=== PATIENT | male | born 1970 | race Caucasian/White ===

== ENCOUNTER 2016-08-24 03:37 | Emergency (ER) | payer OTHER ==
[2016-08-24] MEDS ORDERED: MECLIZINE HCL 12.5 MG TABLET PO ONE (04:21)
[2016-08-24] MEDS ORDERED: LORazepam 2 MG/ML INJ ONE (04:36)
[2016-08-24 04:38] LABS: HEMATOCRIT 47.7 % (42.0-54.0); RED BLOOD COUNT 5.44 X 10^6uL (4.20-6.10); WHITE BLOOD COUNT 12.2 X 10^3uL (3.9-10.7)
[2016-08-24 04:39] LABS: EOSINOPHILS 3.1 % (0.0-6.0); LYMPHOCYTES 30.7 % (20.0-40.0); MEAN CORPUS. HGB CONCENTRATION 33.5 g/dL (32.0-36.0); MEAN CORPUSCULAR HEMOGLOBIN 29.4 pg (29.0-35.0); MEAN PLATELET VOLUME 7.8 fL (7.4-10.4); MONOCYTES 7.3 % (2.0-10.0); NEUTROPHILS 57.8 % (54.0-75.0); PLATELET COUNT 275 X 10^3uL (130-440); RED CELL DISTRIBUTION WIDTH 12.9 % (11.5-14.5)
[2016-08-24 04:40] LABS: BASOPHIL# 0.1 X 10^3uL (0.0-0.1); EOSINOPHILS# 0.4 X 10^3uL (0.0-0.4); LYMPHOCYTES# 3.8 X 10^3uL (0.8-3.8); MONOCYTES# 0.9 X 10^3uL (0.2-1.0); NEUTROPHILS# 7.1 X 10^3uL (2.6-6.7)
--- NOTE | 2016-08-24 04:49 | CT REPORT ---
HISTORY: Dizziness COMPARISON: None. TECHNIQUE: Axial non-contrast images obtained from skull vertex through foramen magnum. Dose reduction technique was utilized. FINDINGS: Sensitivity is slightly limited by motion artifact. Within this limitation: There is no atrophy. There is no hemorrhage. There is no hydrocephalus. No mass lesion is identifi ed. Gr white differentiation adequate, there is no infarction. No midline shift is identified. T he paranasal sinuses are clear. IMPRESSION: 1. Sensitivity is slightly limited by motion artifact. 2. No CT evidence of an acute intracranial process. Final Electronic Signature: This report was electronically signed by Eddie Rust MD on 7 4:47 AM. bryan /
[2016-08-24 04:50] LABS: TROPONIN I < 0.012 ng/mL (0.00-0.034)
[2016-08-24 04:51] LABS: BLOOD UREA NITROGEN 15 mg/dL (9-20); CHLORIDE 103 mmol/L (98-107); GLUCOSE 130 mg/dL (70-100); POTASSIUM 3.9 mmol/L (3.5-5.1); SODIUM 144 mmol/L (137-145)
[2016-08-24 04:52] LABS: A/G RATIO 1.3; ALBUMIN 4.3 g/dL (3.5-5.0); ALKALINE PHOSPHATASE 62 U/L (38-126); ALT 57 U/L (21-72); AST 30 U/L (17-59); BILIRUBIN, TOTAL 0.4 mg/dL (0.2-1.3); CALCIUM 9.5 mg/dL (8.4-10.2); EST GLOMERULAR FILTRATION RATE > 60 mL/min; MAGNESIUM 2.2 mg/dL (1.6-2.3); TOTAL PROTEIN 7.5 g/dL (6.3-8.2)
--- NOTE | 2016-08-24 06:09 | ER NURSING DOCUMENTATION ---
Nurse's Notes [facility] Name:Genaro Acevedo Age:46 yrs Sex:Male :1970 Arrival Date:08/24/2016 Time:03:37 Bed1 Private MD:Ramona Lane Diagnosis:Benign Positional Vertigo Presentation: 08/24 03:39 Presenting complaint: Patient states: he has been dizzy x 30 min. pt states he went to [address] yesterday and had to go immediately back down. Transition of care: patient was not received from another setting of care. 03:39 Acuity: CAMERON 3 bw2 03:39 Method Of Arrival: Wheelchair bw2 Triage Assessment: 03:51 General: Appears in no apparent distress, Behavior is anxious, appropriate for age. bw2 Pain: Denies pain. Neuro: Reports dizziness. Historical: - Allergies: No known drug Allergies; - Home Meds: 1. None - Tetanus: < 10 years. - Ebola Screening: : Patient negative for fever greater than or equal to 101.5 degrees Fahrenheit, and additional compatible Ebola Virus Disease symptoms. Patient denies exposure to infectious person. Patient denies travel to an Ebola-affected area in the 21 days before illness onset. No symptoms or risks identified at this time. . - Immunization history: Flu Vaccine < 1 year. - Social history: Smoking status: Patient states was never smoker of tobacco. Screenin:52 Infectious Disease Risk None. Abuse screen: Denies threats or abuse. Nutritional bw2 screening: No deficits noted. Assessment: 03:52 See Triage Assessment done by same RN. bw2 Vital Signs: 03:52 BP 181 / 101; Pulse 74; Resp 18; Temp 98(O); Pulse Ox 95% on R/A; Weight 90.72 kg; bw2 Height 5 ft. 11 in. (180.34 cm); Pain 0/10; 06:07 BP 170 / 74; Pulse 87; Resp 18; Pulse Ox 94% on R/A; bw2 03:52 Body Mass Index 27.89 (90.72 kg, 180.34 cm) bw2 ED Course: 03:38 Patient arrived in ED. em2 03:38 Physician, No is Private Physician. em2 03:39 Karuna Salcedo is Primary Nurse. bw2 03:41 Triage completed. bw2 03:44 EKG done. (by ED staff). em1 03:47 Sandip Basurto MD is Attending Physician. tl1 03:52 Valuables Remains with patient Patient has correct armband on for positive bw2 identification. Placed in gown. Bed in low position. 03:53 Inserted peripheral IV: 18 gauge in right antecubital area and blood collected. bw2 04:[address] pm1 04:[address] Patient moved back from [address]. pm1 Administered Medications: 04:10 Drug: NS 0.9% 1000 ml; Route: IV; Rate: bolus; Site: right antecubital; bw2 04:49 Follow up: IV Status: Completed infusion bw2 04:10 Drug: Meclizine 25 mg; Route: PO; bw2 04:51 Follow up: Response: No adverse reaction bw2 04:20 Drug: Ativan 0.5 mg; Route: IVP; Site: right antecubital; bw2 05:03 Follow up: Response: No adverse reaction bw2 Outcome: 05:58 Discharge ordered by . tl1 06:07 Discharged to home ambulatory, with significant other. bw2 06:07 Condition: good 06:07 Discharge Assessment: Patient awake, alert and oriented x 3. No cognitive and/or functional deficits noted. Patient verbalized understanding of disposition instructions. 06:07 Discharge instructions given to patient, significant other, Instructed on discharge instructions, follow up and referral plans. medication usage, Demonstrated understanding of instructions, medications, Prescriptions given X 2. 06:08 Patient left the ED. bw2 07 09:56 Discharge F/U Call: Unable to reach: no answer st Signatures: Cheryle Pretty RN RN Joel Jones pm1 Meinking-tech, Miriam-tech em1 Meinking-reg, Miriam-reg em2 Sandip Basurto MD MD tl1 Karuna Salcedo bw2
--- NOTE | 2016-08-24 06:09 | ER PHYSICIAN DOCUMENTATION ---
Physician Documentation [facility] Name:Genaro Acevedo Age:46 yrs Sex:Male :1970 Arrival Date:08/24/2016 Time:03:37 Bed1 Private MD:Physician, No ED Sandip Foster Disposition: 08/24 05:52 Chart complete. tl1 Disposition: 08/24/16 05:58 Discharged to Home/Self Care. Impression: Benign Positional Vertigo. - Condition is Good. - Discharge Instructions: BENIGN POSITIONAL VERTIGO. - Prescriptions for Ativan 1 mg Oral Tablet - take 1 tablet by ORAL route every 8 hours As needed; 10 tablet. Meclizine 25 mg Oral Tablet - take 1 tablet by ORAL route every 8 hours As needed; 30 tablet. - Medical Reconciliation form form. - Follow up: Private Physician; When: 4- 6 days; Reason: Recheck today's complaints, Continuance of care. - Problem is new. - Symptoms have improved. HPI: 03:47 This 46 yrs old Male presents to ER via Wheelchair with complaints of tl1 Dizziness. 04:06 The patient presents with dizziness, generalized weakness, sense of spinning. Onset: tl1 The symptom(s)/episode began/occurred suddenly, 0.5 hour(s) ago. Context: occurred at home, occurred while the patient was lying down. He awakened to urinate, went to the bathroom to urinate, and went back to bed and lay down. After lying there for about 2 minutes he noted the fairly abrupt onset of dizziness that he described as a spinning associated with nausea, malaise, and a bit of clamminess. This lasted a minute or so, and felt a little better when he sat up. When he lay down again, the symptoms again worsened, and he felt bad enough that he had his bring him to the ED. He denied h/a, diplopia, speech or gait difficulty. No f/c/s. No CP, Dyspnea or palpitations. He has had similar brief episodes in the past. Denies prior cardiac history or neurologic problems. . Historical: - Allergies: No known drug Allergies; - Home Meds: 1. None - Tetanus: < 10 years. - Ebola Screening: : Patient negative for fever greater than or equal to 101.5 degrees Fahrenheit, and additional compatible Ebola Virus Disease symptoms. Patient denies exposure to infectious person. Patient denies travel to an Ebola-affected area in the 21 days before illness onset. No symptoms or risks identified at this time. . - Immunization history: Flu Vaccine < 1 year. - Social history: Smoking status: Patient states was never smoker of tobacco. ROS: 04:33 Constitutional: Positive for fatigue, malaise, Negative for chills, fever, weight loss. tl1 04:33 Eyes: Negative for blurry vision, visual disturbance, vision loss. 04:33 ENT: Negative for ear pain, hearing loss, tinnitus, rhinorrhea, sinus congestion, sore throat. 04:33 Neck: Negative for pain with movement, pain at rest. 04:33 Cardiovascular: Negative for chest pain, edema, orthopnea, palpitations. 04:33 Respiratory: Negative for cough, dyspnea on exertion, shortness of breath, wheezing. 04:33 Abdomen/GI: Positive for nausea, Negative for abdominal pain, vomiting, diarrhea, abdominal cramps, abdominal distension, black/tarry stool, rectal bleeding, bowel incontinence. 04:33 Neuro: Negative for altered mental status, gait disturbance, headache. Exam: 04:36 Constitutional: This is a well developed, well nourished patient who is awake, alert, tl1 and in no acute distress. Head/Face: Normocephalic, atraumatic. Eyes: Pupils equal round and reactive to light, extra-ocular motions intact. Lids and lashes normal. Conjunctiva and sclera are non-icteric and not injected. Cornea within normal limits. Periorbital areas with no swelling, redness, or edema. ENT: Nares patent. No nasal discharge, no septal abnormalities noted. Tympanic membranes are normal and external auditory canals are clear. Oropharynx with no redness, swelling, or masses, exudates, or evidence of obstruction, uvula midline. Mucous membranes moist. Cardiovascular: Regular rate and rhythm with a normal S1 and S2. No gallops, murmurs, or rubs. Normal PMI, no JVD. No pulse deficits. Respiratory: Lungs have equal breath sounds bilaterally, clear to auscultation and percussion. No rales, rhonchi or wheezes noted. No increased work of breathing, no retractions or nasal flaring. 04:36 Abdomen/GI: Soft, non-tender, with normal bowel sounds. No distension or tympany. No tl1 guarding or rebound. No evidence of tenderness throughout. 04:36 Neuro: Orientation: is normal, Mentation: is normal, Memory: is normal, Cranial nerves: grossly normal, Cerebellar function: is grossly normal based on the patient's age, Romberg testing is negative, normal finger to nose testing, heel to abdul testing is normal, able to perform alternating rapid hand movements, Motor: moves all fours, strength is 5/5 in the right hand, left hand, right foot and left foot. 05:30 Neuro: Cerebellar function: Gait: is steady, at a normal pace, without difficulty, tl1 appropriate for age. Vital Signs: 03:52 BP 181 / 101; Pulse 74; Resp 18; Temp 98(O); Pulse Ox 95% on R/A; Weight 90.72 kg; bw2 Height 5 ft. 11 in. (180.34 cm); Pain 0/10; 06:07 BP 170 / 74; Pulse 87; Resp 18; Pulse Ox 94% on R/A; bw2 03:52 Body Mass Index 27.89 (90.72 kg, 180.34 cm) bw2 MDM: 03:47 Patient medically screened. tl1 04:20 ECG:. tl1 04:33 Differential diagnosis: cardiac arrhythmia, CVA, generalized weakness, hypovolemia, tl1 idiopathic dizziness, TIA, vertigo. 05:14 Data reviewed: vital signs, nurses notes, lab test result(s), cardiac enzymes, CBC, tl1 electrolytes, hepatic panel, and as a result, I will discharge patient. Test interpretation: by ED physician or midlevel provider: ECG. ED course: He was hydrated. Suspected vertigo was treated with po meclizine and ativan 0.5 mg IV.. 05:54 ED course: He was feeling somewhat better by 0600 and felt like he did not need tl1 admission and that he would rather go back to the cabin they are staying in and recuperate there. He will return for any worsening. I think he is safe to go home and that he most likely has peripheral vertigo, most likely, BPPV.. 08/24 04:41 Order name: CBC AUTO DIF, MDIF/RMOR IF IND; Complete Time: 05:14 EDMS 08/24 05:11 Interpretation: WHITE BLOOD COUNT 12.2; HEMOGLOBIN 16.0; HEMATOCRIT 47.7; PLATELET tl1 COUNT 275. 08/24 04:53 Order name: COMPREHENSIVE METABOLIC PANEL; Complete Time: 05:14 EDMS 08/24 05:13 Interpretation: Normal: SODIUM 144; POTASSIUM 3.9; CHLORIDE 103; CARBON DIOXIDE 26; tl1 GLUCOSE 130; BLOOD UREA NITROGEN 15; CREATININE 1.0; CALCIUM 9.5. 08/24 04:53 Order name: MAGNESIUM; Complete Time: 05:14 EDMS 08/24 05:13 Interpretation: Normal: MAGNESIUM 2.2. tl1 08/24 04:53 Order name: TROPONIN I; Complete Time: 05:14 EDMS 08/24 05:13 Interpretation: Normal: TROPONIN I < 0.012. tl1 08/24 04:51 Order name: CAT SCAN; HEAD W/O CON 12353; Complete Time: 05:14 EDMS 08/24 05:14 Interpretation: NAD. SEE NOTE. tl1 EC:44 Rate is 71 beats/min. Rhythm is regular, Normal Sinus Rhythm. QRS Perry is Normal. LA tl1 interval is normal at 122 msec. QRS interval is normal at 101 msec. QT interval is normal at 425 msec. No Q waves. T waves are Normal. No ST changes noted. Clinical impression: NSR. Delayed R wave progression perhaps c/w old AWMI. No acute ischemic changes. Interpreted by me. Reviewed by me. Dispensed Medications: 04:10 Drug: NS 0.9% 1000 ml; Route: IV; Rate: bolus; Site: right antecubital; bw2 04:49 Follow up: IV Status: Completed infusion bw2 04:10 Drug: Meclizine 25 mg; Route: PO; bw2 04:51 Follow up: Response: No adverse reaction bw2 04:20 Drug: Ativan 0.5 mg; Route: IVP; Site: right antecubital; bw2 05:03 Follow up: Response: No adverse reaction 2 Signatures: Sandip Basurto MD MD tl1 Karuna Salcedo bw2
== END 2016-08-24 06:09 | disposition home or self-care (01) ==
LOC: EDBD → ER 03:37
DX: H81.10 Benign paroxysmal vertigo, unspecified ear (principal); R53.83 Other fatigue; R53.81 Other malaise; R11.0 Nausea
CPT/HCPCS: 70450; 80053; 83735; 84484; 85025; 93005; 96361; 96374; 99284; J2060

== ENCOUNTER 2016-08-26 11:29 | Emergency (ER) | payer OTHER ==
[2016-08-26] MEDS ORDERED: KETOROLAC TROMETHAMINE 60 MG/2 ML VIAL ONE (12:08)
[2016-08-26] MEDS ORDERED: ONDANSETRON ODT 4 MG TAB.RAPDIS ONE (12:09)
--- NOTE | 2016-08-26 12:25 | ER PHYSICIAN DOCUMENTATION ---
Physician Documentation [facility] Name:Genaro Acevedo Age:46 yrs Sex:Male :1970 Arrival Date:08/26/2016 Time:11:29 Bed4 Private MD: Giovany Padilla Disposition: 08/26/16 11:52 Discharged to Home/Self Care. Impression: Nausea. - Condition is Good. - Discharge Instructions: Altitude - ALTITUDE SICKNESS. - Prescriptions for Zofran 4 mg Oral - take 1 tablet by ORAL route every 8 hours; 10 tablet. - Medical Reconciliation form form. - Follow up: Private Physician; When: As needed; Reason: Continuance of care. - Problem is new. - Symptoms have improved. HPI: 08/26 12:18 This 46 yrs old Male presents to ER via Private Vehicle with complaints of jm Dizziness, Nausea, Headache. 12:18 The patient presents with dizziness. Onset: The symptom(s)/episode began/occurred jm today. Onset: The symptom(s)/episode began/occurred 1 week(s) ago. Associated signs and symptoms: Pertinent positives: headache, nausea. The patient has experienced a previous episode, approximately 2 days ago. The patient has been recently seen at the [facility] Emergency Department, this week, for similar complaints labs were performed, CT scan was performed, thought to be BPPV. Pt continues to sx of MARCELO, nausea, insomnia, and dizziness. He thinks it's from attitude. . Historical: - Allergies: No known drug Allergies; - Home Meds: 1. None - PMHx: Benign Positional Vertigo (August 24, 2016); HYPERTENSION; - PSHx: None; - Tetanus: unknown. - Ebola Screening: : Patient negative for fever greater than or equal to 101.5 degrees Fahrenheit, and additional compatible Ebola Virus Disease symptoms. Patient denies exposure to infectious person. Patient denies travel to an Ebola-affected area in the 21 days before illness onset. No symptoms or risks identified at this time. . - Immunization history: Flu Vaccine unknown. - Social history: Smoking status: Patient states former smoker of tobacco. ROS: 12:19 Constitutional: Positive for fatigue, Negative for fever. jm 12:19 Cardiovascular: Negative for chest pain. 12:19 Respiratory: Positive for shortness of breath. 12:19 Abdomen/GI: Positive for nausea. 12:19 Neuro: Positive for dizziness, headache. 12:19 Psych: Positive for insomnia. Exam: 12:21 Constitutional: The patient appears alert, awake, comfortable. 12:21 Eyes: Pupils: equal, round, and reactive to light and accomodation, Extraocular movements: intact throughout, Nystagmus: is not appreciated. 12:21 Cardiovascular: Rate: normal, Rhythm: regular. 12:21 Respiratory: Respirations: normal, Breath sounds: are normal. 12:21 Neuro: Mentation: is normal, Memory: is normal, Gait: is steady. 12:21 Psych: Behavior/mood is cooperative, Affect is flat. Vital Signs: 11:37 BP 168 / 103; Pulse 81; Resp 16; Pulse Ox 93% on R/A; Weight 92.99 kg; Height 5 ft. 11 tg in. (180.34 cm) (R); Pain 6/10; 11:37 Body Mass Index 28.59 (92.99 kg, 180.34 cm) tg MDM: 11:33 Patient medically screened. 12:21 Differential diagnosis: altitude related sx. Data reviewed: vital signs, nurses notes, old medical records, and as a result, I will discharge patient. Counseling: I had a detailed discussion with the patient and/or guardian regarding: the historical points, exam findings, and any diagnostic results supporting the discharge/admit diagnosis. Medication response: The patient's symptoms have improved. 13:07 ED course: Pt got 1LNS, toradol, and zofran. 1 hour later, pt felt much better. NICOLE home. . 08/26 12:42 Order name: Iv Saline Lock; Complete Time: 12:56 08/26 12:42 Order name: Pulse Ox Continuous; Complete Time: 13:09 Dispensed Medications: 12:04 Drug: Toradol 60 mg; Route: IM; Site: left gluteus; tg 12:18 Follow up: Response: No adverse reaction; No change in condition tg 12:04 Drug: Zofran 4 mg; Route: PO; tg 12:18 Follow up: Response: No adverse reaction tg 13:09 Drug: NS 0.9% 1000 ml; Route: IV; Rate: bolus; Site: left antecubital; Delivery: tg Alex Tubing; 13:47 Follow up: IV Status: Completed infusion; IV Intake: 1000ml tg Signatures: Jaquan Swain, EDWIN RN tg Giovany Nails MD MD jm
--- NOTE | 2016-08-26 12:25 | ER NURSING DOCUMENTATION ---
Nurse's Notes [facility] Name:Genaro Acevedo Age:46 yrs Sex:Male :1970 Arrival Date:08/26/2016 Time:11:29 Bed4 Private MD: Diagnosis:Nausea Presentation: 08/26 11:32 Presenting complaint: Patient states: Dizzy, nausea, headache. Seen in the ED recently tg for same. Transition of care: patient was not received from another setting of care. 11:32 Acuity: CAMERON 3 tg 11:32 Method Of Arrival: Private Vehicle tg Triage Assessment: 11:41 General: Appears uncomfortable, Behavior is cooperative, flat, quiet. Pain: Complains tg of pain in headache. Neuro: Level of Consciousness is awake, alert. GI: Reports intolerance of food, nausea, tolerance of fluids, Denies vomiting. Derm: Skin is pink, warm & dry. Historical: - Allergies: No known drug Allergies; - Home Meds: 1. None - PMHx: Benign Positional Vertigo (August 24, 2016); HYPERTENSION; - PSHx: None; - Tetanus: unknown. - Ebola Screening: : Patient negative for fever greater than or equal to 101.5 degrees Fahrenheit, and additional compatible Ebola Virus Disease symptoms. Patient denies exposure to infectious person. Patient denies travel to an Ebola-affected area in the 21 days before illness onset. No symptoms or risks identified at this time. . - Immunization history: Flu Vaccine unknown. - Social history: Smoking status: Patient states former smoker of tobacco. Screenin:42 Infectious Disease Risk Unable to Obtain. Abuse screen: Denies threats or abuse. Denies tg injuries from another. Nutritional screening: No deficits noted. Assessment: 12:47 Reassessment: Pt came back from the waiting room to request IV fluids. . tg Vital Signs: 11:37 BP 168 / 103; Pulse 81; Resp 16; Pulse Ox 93% on R/A; Weight 92.99 kg; Height 5 ft. 11 tg in. (180.34 cm) (R); Pain 6/10; 11:37 Body Mass Index 28.59 (92.99 kg, 180.34 cm) tg ED Course: 11:31 Patient arrived in ED. ama 11:32 Jaquan Swain RN is Primary Nurse. tg 11:32 Giovany Nails MD is Attending Physician. jm 11:33 Triage completed. tg 11:42 Arm band placed on. tg 11:42 Valuables Remains with patient. tg 12:41 Primary Nurse role handed off by Jaquan Swain RN sc1 12:50 Inserted peripheral IV: 20 gauge in left antecubital area and blood collected. rh Administered Medications: 12:04 Drug: Toradol 60 mg; Route: IM; Site: left gluteus; tg 12:18 Follow up: Response: No adverse reaction; No change in condition tg 12:04 Drug: Zofran 4 mg; Route: PO; tg 12:18 Follow up: Response: No adverse reaction tg 13:09 Drug: NS 0.9% 1000 ml; Route: IV; Rate: bolus; Site: left antecubital; Delivery: tg [place] Tubing; 13:47 Follow up: IV Status: Completed infusion; IV Intake: 1000ml tg Intake: 13:47 IV: 1000ml; Total: 1000ml. tg Outcome: 11:52 Discharge ordered by MD. 12:19 Discharged to home ambulatory. tg 12:19 Condition: unchanged 12:19 Discharge Assessment: Patient awake, alert and oriented x 3. No cognitive and/or functional deficits noted. Patient verbalized understanding of disposition instructions. 12:19 Instructed on discharge instructions, follow up and referral plans. medication usage, Prescriptions given X 1. 12:25 Patient left the ED. tg 13:48 Discharged to home ambulatory. tg 13:48 Condition: improved 13:48 Discharge Assessment: Patient awake, alert and oriented x 3. No cognitive and/or functional deficits noted. Patient verbalized understanding of disposition instructions. 13:48 IV D/Yohan 13:50 Patient left the ED. tg 08/27 12:17 Discharge F/U Call: Unable to reach: left voicemail: rosa Signatures: Jaquan Swain, RN Christine John RN RN sc1 Giovany Nails MD MD jm Averdick, Andrew, Emily Wood Sarah sj
== END 2016-08-26 13:51 | disposition home or self-care (01) ==
LOC: ER 11:29
DX: R11.0 Nausea (principal); R42 Dizziness and giddiness; R51 Headache; R06.02 Shortness of breath; G47.00 Insomnia, unspecified; R53.83 Other fatigue
CPT/HCPCS: 96360; 96372; 99283; J1885